=== PATIENT | male | born 1990 | race Caucasian/White ===

== ENCOUNTER 2018-06-30 23:57 | Emergency (ER) | payer SELFPAY ==
[~2018-06-30] VITALS: Ht 170.2 cm; Wt 63.0 kg
--- NOTE | 2018-07-01 00:18 | NUR ---
HAVE NOT BEEN FEELING WELL FOR 2 WEEKS. HAVING SHAKINESS, WEAKNESS, AND NAUSEA. VOMITED BILE 20 MINUTES AGO. HAD DOSE OF HEROIN TONIGHT
[2018-07-01] MEDS ORDERED: CEFTRIAXONE 250 MG IM ONE (00:30)
[2018-07-01 00:48] LABS: BASOPHILS # (AUTO) 0.03 x10^3/uL (0-0.1); BASOPHILS % (AUTO) 0 % (0-1); EOSINOPHILS # (AUTO) 0.18 x10^3/uL (0-0.4); EOSINOPHILS % (AUTO) 2 % (1-7); LYMPHOCYTES # (AUTO) 2.05 x10^3/uL (1-3.4); LYMPHOCYTES % (AUTO) 26 % (22-44); MD NO; MEAN CORPUSCULAR HGB CONC 33.9 g/dL (33.2-36.2); MEAN CORPUSCULAR VOLUME 85.6 fL (81-97); MEAN PLATELET VOLUME 7.5 fL (7.4-10.4); MONOCYTES # (AUTO) 0.73 x10^3/uL (0.2-0.8); MONOCYTES % (AUTO) 9 % (2-9); NEUTROPHILS # (AUTO) 4.85 x10^3/uL (1.8-6.8); NEUTROPHILS % (AUTO) 62 % (42-75); PLATELET COUNT 287 x10^3/uL (130-400); RED BLOOD COUNT 5.65 x10^6/uL (4.38-5.82); RED CELL DISTRIBUTION WIDTH 12.9 % (9.4-14.8)
[2018-07-01] MEDS ORDERED: CEFTRIAXONE 250 MG ONE (00:50)
[2018-07-01] MEDS ORDERED: LIDOCAINE-MPF 1%, 2ML ONE (00:51)
[2018-07-01] MEDS ORDERED: AZITHROMYCIN 250 MG TABLET ONE (00:51)
[2018-07-01 01:00] LABS: ALBUMIN 4.2 g/dL (3.4-5.0); ANION GAP 8 mmol/L (5-15); CALCIUM 8.8 mg/dL (8.5-10.1); CHLORIDE 105 mmol/L (98-107)
[2018-07-01 02:31] VITALS: BP 109/86
--- NOTE | 2018-07-01 02:31 | NUR ---
LUNCH RN: Pt ambulated to bathroom, no assistance required, urine sample cup in hand.
[2018-07-01 02:49] LABS: MICROSCOPIC INDICATED
[2018-07-01 02:56] LABS: CULTURE INDICATED? NO
--- NOTE | 2018-07-01 03:03 | NUR ---
Patient/Caregiver given discharge instructions and they have confirmed that they understand the instructions. Patient ambulatory with steady gait.
[2018-07-01] MEDS ORDERED: AZITHROMYCIN 500 MG TABLET PO SCH (09:00)
== END 2018-07-01 03:20 | disposition home or self-care (01) ==
LOC: ED 07-01 03:10
DX: A56.8 Sexually transmitted chlamydial infection of other sites (principal); R42 Dizziness and giddiness; F11.20 Opioid dependence, uncomplicated; F15.20 Other stimulant dependence, uncomplicated; F17.200 Nicotine dependence, unspecified, uncomplicated; Z86.19 Personal history of other infectious and parasitic diseases
CPT/HCPCS: 36415; 71045; 80048; 81001; 82040; 85025; 87491; 87591; 93005; 96372; 99284; J0696